=== PATIENT | male | born 1980 | race Caucasian/White ===

== ENCOUNTER 2018-01-16 19:44 | Emergency (ER) | payer BC ==
--- NOTE | 2018-01-16 20:46 | EDM.PDOC ---
ED HPI GENERAL MEDICAL PROBLEM - General Chief Complaint: Upper Extremity Injury/Pain Stated Complaint: PAIN RT HAND Time Seen by Provider: 01/16/18 20:20 Source of Information: Reports: Patient History Limitations: Reports: No Limitations - History of Present Illness INITIAL COMMENTS - FREE TEXT/NARRATIVE: HISTORY AND PHYSICAL: History of present illness: [Patient comes to the emergency room complaining of right hand pain. States that he slipped on some ice and fell, injuring his R hand around 10 p.m. last noc. History of boxers fracture to his right hand approximately 8 years ago, which was surgically repaired. He is now complaining of pain to the same location. His swelling has improved since the injury occurred last evening but overall his pain is worsened. He has also had decreased mobility in his fifth finger due to pain in the hand area. He's been taking some Tylenol and ibuprofen with minimal improvement in his symptoms.] Review of systems: As per history of present illness and below otherwise all systems reviewed and negative. Past medical history: As per history of present illness and as reviewed below otherwise noncontributory. Surgical history: As per history of present illness and as reviewed below otherwise noncontributory. Social history: No reported history of drug or alcohol abuse. Family history: As per history of present illness and as reviewed below otherwise noncontributory. Physical exam: HEENT: Atraumatic, normocephalic. Extremities: Lateral aspect of the dorsum of the R hand is bruised and swollen. Is tender w/ palpation. Cap RF is <2 seconds. Neurovascular unremarkable. Neuro: Awake, alert, oriented. Motor and sensory unremarkable throughout. Exam nonfocal. Diagnostics: [R hand x-ray] Impression: [R 5th metacarpal pain ] Plan: [Discussed with patient that his x-ray shows no fractures. He is placed in a gutter splint and prescribed hydrocodone 5/325 mg #10 sig one by mouth every 6- 8 hours as needed for pain 0 refills through [facility]. Continue ibuprofen. Referral is given to [facility] w/ Dr. Lauren Henry. Is in agreement with today' s plan. All of his questions are answered and concerns are addressed.] Definitive disposition and diagnosis as appropriate pending reevaluation and review of above. right hand Pain Score (Numeric/FACES): 8 - Related Data Allergies Allergy/AdvReac Type Severity Reaction Status Date / Time No Known Allergies Allergy Verified 01/16/18 20:21 Home Meds: Home Meds . [No Known Home Meds] 01/16/18 [History] Past Medical History HEENT History: Reports: None Cardiovascular History: Reports: None Respiratory History: Reports: None Gastrointestinal History: Reports: None Genitourinary History: Reports: None Musculoskeletal History: Reports: None Neurological History: Reports: None Psychiatric History: Reports: None Endocrine/Metabolic History: Reports: None Hematologic History: Reports: None Immunologic History: Reports: None Oncologic (Cancer) History: Reports: None Dermatologic History: Reports: None - Infectious Disease History Infectious Disease History: Reports: None - Past Surgical History Head Surgeries/Procedures: Reports: None Musculoskeletal Surgical History: Reports: Other (See Below) Other Musculoskeletal Surgeries/Procedures:: Hand Surgery Social & Family History - Family History Family Medical History: Noncontributory - Tobacco Use Smoking Status *Q: Never Smoker - Caffeine Use Caffeine Use: Reports: Coffee - Recreational Drug Use Recreational Drug Use: No Review of Systems - Review of Systems Review Of Systems: ROS reveals no pertinent complaints other than HPI. ED EXAM, GENERAL - Physical Exam Exam: See Below Course - Vital Signs Last Recorded V/S: Last Vital Signs Temp 97.7 F 01/16/18 20:15 Pulse 80 01/16/18 20:15 Resp 18 01/16/18 20:15 BP 122/76 01/16/18 20:15 Pulse Ox 96 01/16/18 20:15 - Orders/Labs/Meds Orders: Active Orders 24 hr Category Date Time Status Hand 2V Rt [CR] Stat Exams 01/16/18 20:21 Taken Departure - Departure Time of Disposition: 21:45 Disposition: Home, Self-Care 01 Condition: Good Clinical Impression: Right hand pain - Discharge Information Referrals: PCP,None [Primary Care Provider] - Forms: ED Department Discharge Additional Instructions: The following information is given to patients seen in the emergency department who are being discharged to home. This information is to outline your options for follow-up care. We provide all patients seen in our emergency department with a follow-up referral. The need for follow-up, as well as the timing and circumstances, are variable depending upon the specifics of your emergency department visit. If you don't have a primary care physician on staff, we will provide you with a referral. We always advise you to contact your personal physician following an emergency department visit to inform them of the circumstance of the visit and for follow-up with them and/or the need for any referrals to a consulting specialist. The emergency department will also refer you to a specialist when appropriate. This referral assures that you have the opportunity for follow-up care with a specialist. All of these measure are taken in an effort to provide you with optimal care, which includes your follow-up. Under all circumstances we always encourage you to contact your private physician who remains a resource for coordinating your care. When calling for follow-up care, please make the office aware that this follow-up is from your recent emergency room visit. If for any reason you are refused follow-up, please contact the [facility] emergency department at and asked to speak to the emergency department charge nurse. [facility] Specialty care- Pl[facility] Surgery Professional [address], [address] [place] [address] Call the above clinic tomorrow morning to get scheduled for later this week. You may continue alternating Tylenol and ibuprofen as needed for mild-to- moderate pain. You may take hydrocodone as needed for moderate to severe pain. Wear hand splint. Return to ER as needed as discussed. - My Orders Last 24 Hours: My Active Orders 01/16/18 20:21 Hand 2V Rt [CR] Stat - Assessment/Plan Last 24 Hours: My Active Orders 01/16/18 20:21 Hand 2V Rt [CR] Stat
--- NOTE | 2018-01-17 13:52 | CR ---
EXAM DATE: 01/16/18 PATIENT'S AGE: 37 Patient: JONA SMITH Facility: [place], [place] Site . Site : 1980 Study: XRay Extremity Right hand [id number] 8:58:22 PM Ordering Physician: Doctor Dubon Final Report: HISTORY: Fall. FINDINGS: Two portable views of the right hand demonstrate compression plate and screws fixing the mid distal 5th metatarsal. There is flexion at the DIP joint of the 5th finger. Alignment is otherwise normal. No acute fracture is seen. IMPRESSION: 1. ORIF of the mid to distal 5th metacarpal. 2. No acute fracture line identified. If snuffbox tenderness is present and persistent, a followup exam in 7-10 days may be of value to exclude an occult scaphoid fracture. Dictated by Aminata Huff MD @ 01/16/2018 9:27:21 PM Dictated by: Aminata Huff MD @ 01/16/2018 21:27:30 (Electronic Signature) Report Signed by Proxy. [facility]ITAL[facility]arred
== END 2018-01-16 21:58 | disposition home or self-care (01) ==
LOC: MW.ED 19:44
DX: M79.641 Pain in right hand (principal); W00.0XXA Fall on same level due to ice and snow, initial encounter
CPT/HCPCS: 29125; 73120-26-RT; 73120-RT; 99283

== ENCOUNTER 2018-01-30 22:37 | Emergency (ER) | payer BC ==
--- NOTE | 2018-01-30 22:55 | EDM.PDOC ---
ED HPI GENERAL MEDICAL PROBLEM - General Chief Complaint: Abdominal Pain Stated Complaint: PT HAS STOMACH PAINS Time Seen by Provider: 01/30/18 22:55 Source of Information: Reports: Patient - History of Present Illness INITIAL COMMENTS - FREE TEXT/NARRATIVE: HISTORY AND PHYSICAL: History of present illness: [Patient presents with abdominal pain which is nonfocal nonradiating, he rates 4 out of 10 nonradiating has increased over the last couple days has noticed that he drinks alcohol routinely a liter of whiskey lasting him one week gastritis may come into play lipase is within normal limits as is CT scan he did vomit on Wednesday one time and he has had a couple of loose stools since Wednesday on a daily basis no blood or mucus in the stool guaiac is negative, there is no association with food or diet he did drink alcohol on Wednesday and Wednesday night No current fever nausea vomiting constipation chest pain shortness breath headache dizziness or palpitation no bowel or urine symptoms Review of systems: As per history of present illness and below otherwise all systems reviewed and negative. Past medical history: As per history of present illness and as reviewed below otherwise noncontributory. Surgical history: As per history of present illness and as reviewed below otherwise noncontributory. Social history: No reported history of drug or alcohol abuse. Family history: As per history of present illness and as reviewed below otherwise noncontributory. Physical exam: HEENT: Atraumatic, normocephalic, pupils reactive, negative for conjunctival pallor or scleral icterus, mucous membranes moist, throat clear, neck supple, nontender, trachea midline. Lungs: Clear to auscultation, breath sounds equal bilaterally, chest nontender. Heart: S1S2, regular, negative for clicks, rubs, or JVD. Abdomen: Soft, nondistended,Nonfocal tenderness no right lower quadrant pain no guarding or rebound tendernessNegative for masses or hepatosplenomegaly. Negative for costovertebral tenderness. Pelvis: Stable nontender. Genitourinary: Deferred. Rectal: Deferred. Extremities: Atraumatic, negative for cords or calf pain. Neurovascular unremarkable. Neuro: Awake, alert, oriented. Cranial nerves II through XII unremarkable. Cerebellum unremarkable. Motor and sensory unremarkable throughout. Exam nonfocal. Diagnostics: [CBC CMP and lipase troponin UA ] guaiac-negative CT abdomen pelvis with contras-consistent with gastroenteritis t Therapeutics: [ 1 L normal saline bolus Toradol 30 mg IV Proton X 80 mg IV Zofran 8 mg IV ] Impression: [ gastroenteritis Abdominal pain ] Definitive disposition and diagnosis as appropriate pending reevaluation and review of above. abdominal Pain Score (Numeric/FACES): 8 - Related Data Allergies Allergy/AdvReac Type Severity Reaction Status Date / Time No Known Allergies Allergy Verified 01/30/18 22:50 Home Meds: Home Meds . [No Known Home Meds] 01/16/18 [History] Past Medical History HEENT History: Reports: None Cardiovascular History: Reports: None Respiratory History: Reports: None Gastrointestinal History: Reports: None Genitourinary History: Reports: None Musculoskeletal History: Reports: None Neurological History: Reports: None Psychiatric History: Reports: None Endocrine/Metabolic History: Reports: None Hematologic History: Reports: None Immunologic History: Reports: None Oncologic (Cancer) History: Reports: None Dermatologic History: Reports: None - Infectious Disease History Infectious Disease History: Reports: None - Past Surgical History Head Surgeries/Procedures: Reports: None Musculoskeletal Surgical History: Reports: Other (See Below) Other Musculoskeletal Surgeries/Procedures:: Hand Surgery Social & Family History - Family History Family Medical History: Noncontributory - Tobacco Use Smoking Status *Q: Never Smoker - Caffeine Use Caffeine Use: Reports: Coffee - Recreational Drug Use Recreational Drug Use: No ED ROS GENERAL - Review of Systems Review Of Systems: ROS reveals no pertinent complaints other than HPI. ED EXAM, GENERAL - Physical Exam Exam: See Below Course - Vital Signs Last Recorded V/S: Last Vital Signs Temp 97.9 F 01/30/18 22:51 Pulse 62 01/30/18 22:51 Resp 18 01/30/18 22:51 BP 136/99 H 01/30/18 22:51 Pulse Ox 98 01/30/18 22:51 - Orders/Labs/Meds Orders: Active Orders 24 hr Category Date Time Status Abdomen Pelvis w Cont [CT] Stat Exams 01/30/18 23:10 Taken CULTURE BLOOD [BC] Stat Lab 01/30/18 23:08 Received CULTURE BLOOD [BC] Stat Lab 01/30/18 23:17 Received Guaiac [OCCULT BLOOD DIAGNOSTIC] [OP] Stat Lab 01/31/18 01:02 Ordered UA W/MICROSCOPIC [URIN] Stat Lab 01/31/18 00:38 Ordered Blood Culture x2 Reflex Set [OM.PC] Stat Oth 01/30/18 22:58 Ordered Labs: Laboratory Tests 01/30/18 01/30/18 01/31/18 Range/Units 23:08 23:08 00:38 WBC 13.78 H (4.0-11.0) K/uL RBC 5.21 (4.50-5.90) M/uL Hgb 16.2 (13.0-17.0) g/dL Hct 46.5 (38.0-50.0) % MCV 89.3 (80.0-98.0) fL MCH 31.1 (27.0-32.0) pg MCHC 34.8 (31.0-37.0) g/dL RDW Std Deviation 42.4 (28.0-62.0) fl RDW Coeff of Arash 13 (11.0-15.0) % Plt Count 230 (150-400) K/uL MPV 10.30 (7.40-12.00) fL Add Manual Diff YES Neutrophils % (Manual) 38 L (48.0-80.0) % Lymphocytes % (Manual) 28 (16.0-40.0) % Monocytes % (Manual) 9 (0.0-15.0) % Eosinophils % (Manual) 25 H (0.0-7.0) % Nucleated RBC % 0.0 /100WBC Absolute Seg Neuts 5.2 (1.4-5.7) Lymphocytes # (Manual) 3.9 H (0.6-2.4) Monocytes # (Manual) 1.2 H (0.0-0.8) Eosinophils # (Manual) 3.4 H (0.0-0.7) Nucleated RBCs # 0 K/uL Sodium 139 (136-148) mmol/L Potassium 3.9 (3.5-5.1) mmol/L Chloride 102 (98-107) mmol/L Carbon Dioxide 25.7 (21.0-32.0) mmol/L BUN 15 (7.0-18.0) mg/dL Creatinine 1.2 (0.8-1.3) mg/dL Est Cr Clr Drug Dosing 111.08 mL/min Estimated GFR (MDRD) > 60.0 ml/min Glucose 119 H (74-106) mg/dL Calcium 9.4 (8.5-10.1) mg/dL Total Bilirubin 0.3 (0.2-1.0) mg/dL AST 18 (15-37) IU/L ALT 28 (14-63) IU/L Alkaline Phosphatase 101 (46-116) U/L Troponin I < 0.050 (0.000-0.056) ng/mL Total Protein 7.3 (6.4-8.2) g/dL Albumin 3.7 (3.4-5.0) g/dL Globulin 3.6 H (2.0-3.5) g/dL Albumin/Globulin Ratio 1.0 L (1.3-2.8) Amylase 48 (25-115) U/L Lipase 77 (73-393) U/L Urine Color YELLOW Urine Appearance CLEAR Urine pH 7.0 (5.0-8.0) Ur Specific [place] 1.010 (1.001-1.035) Urine Protein NEGATIVE (NEGATIVE) mg/dL Urine Glucose (UA) NEGATIVE (NEGATIVE) mg/dL Urine Ketones NEGATIVE (NEGATIVE) mg/dL Urine Occult Blood NEGATIVE (NEGATIVE) Urine Nitrite NEGATIVE (NEGATIVE) Urine Bilirubin NEGATIVE (NEGATIVE) Urine Urobilinogen 0.2 (<2.0) EU/dL Ur Leukocyte Esterase NEGATIVE (NEGATIVE) Urine RBC 0-1 (0-2/HPF) Urine WBC 0-1 (0-5/HPF) Ur Epithelial Cells RARE (NONE-FEW) Amorphous Sediment LIGHT (NEGATIVE) Urine Bacteria FEW (NEGATIVE) Ethyl Alcohol <3 mg/dL Meds: Medications Discontinued Medications Generic Name Dose Route Start Last Admin Trade Name Elliotq PRN Reason Stop Dose Admin Sodium Chloride 1,000 mls @ 999 mls/hr 01/30/18 22:59 01/30/18 23:10 Normal Saline IV 01/30/18 23:59 999 mls/hr STAT ONE Administration Iopamidol 100 ml 01/30/18 23:39 01/30/18 23:40 Isovue-370 (76%) IVPUSH 01/30/18 23:40 100 ml ONETIME STA Administration Ketorolac Tromethamine 30 mg 01/30/18 22:59 01/30/18 23:13 Toradol IVPUSH 01/30/18 23:00 30 mg ONETIME ONE Administration Ondansetron HCl 8 mg 01/30/18 22:59 01/30/18 23:13 Zofran IVPUSH 01/30/18 23:00 8 mg ONETIME ONE Administration Pantoprazole Sodium 80 mg 01/30/18 22:59 01/30/18 23:14 Protonix Iv IVPUSH 01/30/18 23:00 80 mg .BOLUS ONE Administration Departure - Departure Time of Disposition: 01:04 Disposition: Home, Self-Care 01 Condition: Good Clinical Impression: Gastroenteritis - Discharge Information Referrals: PCP,None [Primary Care Provider] - Forms: ED Department Discharge Additional Instructions: Omeprazole 40 mg by mouth daily may benefit Alcohol cessation recommend Return if symptoms persist or worsen or if new concerning symptoms develop Follow-up with primary care in [address] [facility] [address] [place] [id number] The following information is given to patients seen in the emergency department who are being discharged to home. This information is to outline your options for follow-up care. We provide all patients seen in our emergency department with a follow-up referral. The need for follow-up, as well as the timing and circumstances, are variable depending upon the specifics of your emergency department visit. If you don't have a primary care physician on staff, we will provide you with a referral. We always advise you to contact your personal physician following an emergency department visit to inform them of the circumstance of the visit and for follow-up with them and/or the need for any referrals to a consulting specialist. The emergency department will also refer you to a specialist when appropriate. This referral assures that you have the opportunity for follow-up care with a specialist. All of these measure are taken in an effort to provide you with optimal care, which includes your follow-up. Under all circumstances we always encourage you to contact your private physician who remains a resource for coordinating your care. When calling for follow-up care, please make the office aware that this follow-up is from your recent emergency room visit. If for any reason you are refused follow-up, please contact the [facility] emergency department at and asked to speak to the emergency department charge nurse. - My Orders Last 24 Hours: My Active Orders 01/30/18 22:58 Blood Culture x2 Reflex Set [OM.PC] Stat 01/30/18 23:08 CULTURE BLOOD [BC] Stat 01/30/18 23:10 Abdomen Pelvis w Cont [CT] Stat 01/30/18 23:17 CULTURE BLOOD [BC] Stat 01/31/18 00:38 UA W/MICROSCOPIC [URIN] Stat 01/31/18 01:02 Guaiac [OCCULT BLOOD DIAGNOSTIC] [OP] Stat - Assessment/Plan Last 24 Hours: My Active Orders 01/30/18 22:58 Blood Culture x2 Reflex Set [OM.PC] Stat 01/30/18 23:08 CULTURE BLOOD [BC] Stat 01/30/18 23:10 Abdomen Pelvis w Cont [CT] Stat 01/30/18 23:17 CULTURE BLOOD [BC] Stat 01/31/18 00:38 UA W/MICROSCOPIC [URIN] Stat 01/31/18 01:02 Guaiac [OCCULT BLOOD DIAGNOSTIC] [OP] Stat
[2018-01-30] MEDS ORDERED: Pantoprazole 40 MG Vial IVPUSH ONE (22:59)
[2018-01-30] MEDS ORDERED: Sodium Chloride 0.9% 1,000 ML IV ONE (22:59)
[2018-01-30] MEDS ORDERED: Ondansetron 4 MG/2 ML SDV IVPUSH ONE (22:59)
[2018-01-30] MEDS ORDERED: Ketorolac 30 MG/ML SDV IVPUSH ONE (22:59)
[2018-01-30] MEDS ORDERED: Iopamidol 755 Mg/ML 100 ML Bottle IVPUSH STA (23:39)
[2018-01-30 23:58] LABS: CHLORIDE,CL 102 mmol/L (98-107); SODIUM,NA 139 mmol/L (136-148)
--- NOTE | 2018-01-31 14:17 | CT ---
EXAM DATE: 01/30/18 PATIENT'S AGE: 37 Patient: JONA SMITH Facility: [place], [place] Site . Site : 1980 Study: CT Abdomen/Pelvis WITH [id number] 11:40:16 PM Ordering Physician: Lakesha Quinn Final Report: INDICATION: Abdominal pain, nausea and vomiting TECHNIQUE: CT abdomen and pelvis acquired with IV contrast. COMPARISON: None available FINDINGS: Lower chest: Subcentimeter lymph nodes adjacent to the distal esophagus, nonspecific. Liver: A subtle subcentimeter superior right hepatic low-density lesion, too small to characterize. Spleen: A sub centimeter splenic low density lesion, nonspecific, possibly a cyst or small hemangioma. Pancreas: Unremarkable. Gallbladder and bile ducts: Unremarkable. Adrenal glands: Unremarkable. Kidneys: Unremarkable. GI tract: Folded configuration of the proximal gastric cardia. Fluid-filled small bowel segments are nonspecific without evidence of high-grade mechanical bowel obstruction. A normal appendix. No significant pericolonic changes. Vascular structures: Unremarkable. Lymph nodes: Unremarkable. Miscellaneous: Small pelvic free fluid. No free air. Pelvic Organs: A mildly prominent prostate and prominent, however symmetrical, seminal vesicles. Slight prominence of the bladder wall versus underdistention. Bones: Unremarkable for age. IMPRESSION: Fluid-filled small bowel segments, nonspecific. Correlate for enteritis. Small pelvic free fluid. Mild prostatic prominence and prominence of the seminal vesicles. Correlate clinically to exclude prostatitis. Slight prominence of the bladder wall. Correlate with urinalysis. Dictated by Rob Benoit MD @ 01/31/2018 12:32:38 AM Please note that all CT scans at this facility use dose modulation, iterative reconstruction, and/or weight-based dosing when appropriate to reduce radiation dose to as low as reasonably achievable. Dictated by: Rob Benoit MD @ 01/31/2018 00:32:43 (Electronic Signature) Report Signed by Proxy. [facility]
== END 2018-01-31 01:21 | disposition home or self-care (01) ==
LOC: MW.ED 22:37
DX: K52.9 Noninfective gastroenteritis and colitis, unspecified (principal)
CPT/HCPCS: 36415; 74177; 80053; 81001; 82150; 82272; 83690; 84484; 85025; 87040; 96361; 96374; 96375; 99284; C9113; G0480; J1885; J2405; J7040; Q9967; 99283

== ENCOUNTER 2021-04-22 02:13 | Emergency (ER) | payer BC ==
--- NOTE | 2021-04-22 02:36 | EDM.PDOC ---
ED HPI GENERAL MEDICAL PROBLEM - General Chief Complaint: Upper Extremity Injury/Pain Stated Complaint: RIGHT HAND INJURY Time Seen by Provider: 04/22/21 02:24 - History of Present Illness INITIAL COMMENTS - FREE TEXT/NARRATIVE: History of present illness: [] This 40-year-old right-handed male got his right hand caught between bed and wall when he was trying to move furniture at about 8:30 PM. Swelling and pain is increased since. The pain is constant and worse when he tries to move it or touch it. He has a prior history of boxer's fracture with pins in his hand. Review of systems: As per history of present illness and below otherwise all systems reviewed and negative. Past medical history: As per history of present illness and as reviewed below otherwise noncontributory. Surgical history: As per history of present illness and as reviewed below otherwise noncontributory. Social history: No reported history of drug or alcohol abuse. Family history: As per history of present illness and as reviewed below otherwise noncontributory. Physical exam: Constitutional - well developed, well-nourished and in no acute distress HEENT - normocephalic, no evidence of trauma - external nose and mouth normal - no mass in neck and no JVD - mucosae moist EYES - full EOM, PERRL, no icterus - no evidence of inflammation, injection, or drainage Respiratory - no respiratory distress, equal bilateral expansion Musculoskeletal tender swelling area of the distal right metacarpal #5 and surrounding soft tissues. Otherwise no gross deformity of long bones or joints - no tenderness, swelling or edema Neurologic - Alert and oriented times four - CN II-XII grossly intact - motor sensory and coordination symmetrically normal Psychiatric - appropriate mood and affect with normal thought content Hematologic - No petechiae or purpura - mucosa appropriate color and sclera not pale - normal nail bed color and refill Integument - no rash or evidence of trauma - normal turgor Diagnostics: [] Therapeutics: [] Impression: [] Plan: [] Definitive disposition and diagnosis as appropriate pending reevaluation and review of above. Right Hand Pain Score (Numeric/FACES): 7 - Related Data Allergies Allergy/AdvReac Type Severity Reaction Status Date / Time No Known Allergies Allergy Verified 01/30/18 22:50 Home Meds: Home Meds . [No Known Home Meds] 01/16/18 [History] Past Medical History HEENT History: Reports: None Cardiovascular History: Reports: None Respiratory History: Reports: None Gastrointestinal History: Reports: None Genitourinary History: Reports: None Musculoskeletal History: Reports: None Neurological History: Reports: None Psychiatric History: Reports: None Endocrine/Metabolic History: Reports: None Hematologic History: Reports: None Immunologic History: Reports: None Oncologic (Cancer) History: Reports: None Dermatologic History: Reports: None - Infectious Disease History Infectious Disease History: Reports: None - Past Surgical History Head Surgeries/Procedures: Reports: None Musculoskeletal Surgical History: Reports: Other (See Below) Other Musculoskeletal Surgeries/Procedures:: Hand Surgery Social & Family History - Family History Family Medical History: No Pertinent Family History - Tobacco Use Tobacco Use Status *Q: Never Tobacco User - Caffeine Use Caffeine Use: Reports: Coffee - Recreational Drug Use Recreational Drug Use: No Review of Systems - Review of Systems Review Of Systems: Comprehensive ROS is negative, except as noted in HPI. ED EXAM, GENERAL - Physical Exam Exam: See Below Free Text/Narrative:: My physical exam is in the HPI Course - Vital Signs Text/Narrative:: X-ray reveals that there is no acute fracture. The PIP and DIP of the fifth digit sublux into an abnormal position consistent with a probable tendon injury to that digit. Patient is able to be placed into a normal alignment and position but with pain. A splint will be applied and he will be referred to the hand surgeon. Last Recorded V/S: Last Vital Signs Temp 36.3 C 04/22/21 02:23 Pulse 96 04/22/21 02:23 Resp 18 04/22/21 02:23 BP 157/107 H 04/22/21 02:23 Pulse Ox 97 04/22/21 02:23 - Orders/Labs/Meds Orders: Active Orders 24 hr Category Date Time Status Splinting [RC] ASDIRECTED Care 04/22/21 03:01 Ordered Hand Comp Min 3V Rt [CR] Stat Exams 04/22/21 02:35 Taken Meds: Medications Discontinued Medications Generic Name Dose Route Start Last Admin Trade Name Freq PRN Reason Stop Dose Admin Hydrocodone Bitart/Acetaminophen 1 tab 04/22/21 03:00 Acetaminophen/Hydrocodone 325-10 Mg Tab PO 04/22/21 03:01 ONETIME ONE Departure - Departure Time of Disposition: 03:08 Disposition: Home, Self-Care 01 Condition: Good Clinical Impression: Injury of tendon of right hand, Crushing injury of right hand - Discharge Information Instructions: Crush Injury of the Hand Referrals: PCP,None [Primary Care Provider] - Estephanie Diana [Ordering Only Provider] - Jw Diaz MD [Ordering Only Provider] - Forms: ED Department Discharge Additional Instructions: The 2 joints of the little finger have ligament damage that causes the bones to move incorrectly when you try to flex and extend them. Wear the splint for comfort and ice and elevate the digits. Follow-up with the hand surgeons. [facility] [address], [address] [place] [address] The following information is given to patients seen in the emergency department who are being discharged to home. This information is to outline your options for follow-up care. We provide all patients seen in our emergency department with a follow-up referral. The need for follow-up, as well as the timing and circumstances, are variable depending upon the specifics of your emergency department visit. If you don't have a primary care physician on staff, we will provide you with a referral. We always advise you to contact your personal physician following an emergency department visit to inform them of the circumstance of the visit and for follow-up with them and/or the need for any referrals to a consulting specialist. The emergency department will also refer you to a specialist when appropriate. This referral assures that you have the opportunity for follow-up care with a specialist. All of these measure are taken in an effort to provide you with optimal care, which includes your follow-up. Under all circumstances we always encourage you to contact your private physician who remains a resource for coordinating your care. When calling for follow-up care, please make the office aware that this follow-up is from your recent emergency room visit. If for any reason you are refused follow-up, please contact the Emergency Department at and asked to speak to the emergency department charge nurse. Sepsis Event Note (ED) - Evaluation Sepsis Screening Result: No Definite Risk - Focused Exam Vital Signs: Vital Signs Temp Pulse Resp BP Pulse Ox 04/22/21 02:23 36.3 C 96 18 157/107 H 97 - My Orders Last 24 Hours: My Active Orders 04/22/21 02:35 Hand Comp Min 3V Rt [CR] Stat 04/22/21 03:01 Splinting [RC] ASDIRECTED - Assessment/Plan Last 24 Hours: My Active Orders 04/22/21 02:35 Hand Comp Min 3V Rt [CR] Stat 04/22/21 03:01 Splinting [RC] ASDIRECTED
[2021-04-22] MEDS ORDERED: Acetaminophen/HYDROcodone 325-10 MG Tab PO ONE (03:00)
--- NOTE | 2021-04-22 03:25 | CR ---
Indication: Injury, pain Technique: Three views of the right hand Comparison: Right hand radiographs 01/16/2018 Findings: No evidence of acute fracture or joint dislocation. Stable fixation hardware in the distal 5th metacarpal. Joint flexion noted at the 5th proximal interphalangeal joint, similar to prior. No appreciable soft tissue edema. Impression: No acute abnormality. Stable chronic findings as above. Dictated by Liana Robbins MD @ 04/22/2021 3:24:[address] Liana Robbins @ Apr 22 2021 3:24AM
== END 2021-04-22 03:22 | disposition home or self-care (01) ==
LOC: MW.ED 02:13
DX: S67.21XA Crushing injury of right hand, initial encounter (principal); S66.901A Unspecified injury of unspecified muscle, fascia and tendon at wrist and hand level, right hand, initial encounter; W23.0XXA Caught, crushed, jammed, or pinched between moving objects, initial encounter
CPT/HCPCS: 73130; 99283; A9270; 29130

== ENCOUNTER 2023-09-27 08:25 | Emergency (ER) | payer BC ==
[2023-09-27] MEDS ORDERED: predniSONE 20 MG Tab PO ONE (08:53)
== END 2023-09-27 09:17 | disposition home or self-care (01) ==
LOC: MW.ED 08:25
DX: M54.41 Lumbago with sciatica, right side (principal)
CPT/HCPCS: 99283; A9270

== ENCOUNTER 2024-01-30 04:40 | Emergency (ER) | payer MEDICAID ==
[2024-01-30] MEDS: Lidocaine 2% 100 MG/5 ML Syringe IVPUSH ONE (05:16)
[2024-01-30] MEDS: Magnesium Sulfate (4.06 MEQ/ML) 5 GM/10 ML SDV IV STA (05:17)
[2024-01-30] MEDS: Sodium Bicarbonate 8.4% 50 MEQ/50 ML Syringe IVPUSH ONE (05:17)
[2024-01-30] MEDS: Calcium Chloride 10% 1 GM/10 ML Syringe IVPUSH ONE (05:17)
[2024-01-30 05:19] LABS: BASE EXCESS VENOUS -11.4 (-2.0-3.0); PH,VENOUS 7.02 (7.31-7.41)
[2024-01-30] MEDS: EPINEPHrine 1:10,000 1 MG/10 ML Syringe IVPUSH STA (05:19)
[2024-01-30 05:23] LABS: BLOOD UREA NITROGEN,BUN 15 mg/dL (7.0-18.0); CALCIUM 10.6 mg/dL (8.5-10.1); CARBON DIOXIDE,CO2 22.2 mmol/L (21.0-32.0); CHLORIDE,CL 101 mmol/L (98-107); CREATININE 2.2 mg/dL (0.8-1.3); GLUCOSE RANDOM 407 mg/dL (74-106); POTASSIUM,K 3.2 mmol/L (3.5-5.1); SODIUM,NA 140 mmol/L (136-148)
[2024-01-30] MEDS: Amiodarone 150 MG/3 ML SDV IV STA (05:24)
[2024-01-30 05:27] LABS: ESTIMATED GFR 38 mL/min (>60)
[2024-01-30] MEDS: Magnesium Sulfate/Water 100 ML IV ONE (05:57)
[2024-01-30] MEDS: EPINEPHrine 1 MG/1 ML Amp IVPUSH ONE ×5 (05:58)
== END 2024-01-30 10:08 | disposition expired ==
LOC: MW.ED 04:40
DX: I46.9 Cardiac arrest, cause unspecified (principal)
CPT/HCPCS: 36415; 80048; 82803; 92950; 92960; 96374; 96375; 99285; J0171; J0282; J3475; J3490